=== PATIENT | female | born 1985 | race African-American/Black ===

== ENCOUNTER 2021-01-12 21:32 | Inpatient (IN) | payer OTHER ==
[2021-01-12] MEDS ORDERED: Diphenoxylate HCl/Atropine Tablet PO PRN (21:46)
[2021-01-12] MEDS ORDERED: Lidocaine 1% (PF) 30 ML VIAL SC PRN (21:46)
[2021-01-12] MEDS ORDERED: Ibuprofen 800 MG TAB PO PRN (21:46)
[2021-01-12] MEDS ORDERED: hydrALAZINE 20 MG/ML VIAL SLOW IVP PRN (21:46)
[2021-01-12] MEDS ORDERED: Ondansetron PF 4 MG/2 ML Vial IVP PRN ×2 (21:46→23:40)
[2021-01-12] MEDS ORDERED: Carboprost 250 MCG/ML AMP IM PRN (21:46)
[2021-01-12] MEDS ORDERED: Misoprostol 200 MCG TAB PR PRN (21:46)
[2021-01-12] MEDS ORDERED: Promethazine HCl 25 MG/ML VIAL IM PRN ×2 (21:46→23:40)
[2021-01-12] MEDS ORDERED: Lactated Ringer's 1,000 ML IV SCH (22:00)
[2021-01-12] MEDS ORDERED: NS w/ Oxytocin 30 units 500 ML IV SCH (22:00)
[2021-01-12] MEDS ORDERED: Fentanyl 2 mcg/Bup 0.1% Cadd 100 ML ONE (22:01)
[2021-01-12 22:08] VITALS: BMI 32.9
[2021-01-12 22:53] LABS: Mean Corpuscular HGB CONC 32.1 g/dL (32.0-36.0); Mean Corpuscular Hemoglobin 28.2 pg (27.0-33.0); Mean Corpuscular Volume 88.1 fl (81.6-98.3); Mean Platelet Volume 11.3 fl (7.4-10.4); Platelet Count 187 10x3/uL (150-450); RBC Distribution Width 16.9 % (11.5-14.5); Red Blood Cell (RBC) Count 3.54 10x6/uL (3.90-5.03); White Blood Cell (WBC) Count 10.2 10x3/uL (3.5-10.5)
[2021-01-12 23:28] LABS: Hep B Surf Ag Non-Reactive S/CO (NonReactive)
[2021-01-12 23:35] LABS: HBSAg Index 0.18 S/CO (0-0.99)
[2021-01-12] MEDS ORDERED: ePHEDrine Sulfate 50 MG/10 ML VIAL SLOW IVP PRN (23:40)
[2021-01-12] MEDS ORDERED: Hydrocerin (Eucerin) Cream 120 gm Jar TOP PRN (23:40)
[2021-01-12] MEDS ORDERED: diphenhydrAMINE 50 MG/ML VIAL IVP PRN (23:40)
[2021-01-12] MEDS ORDERED: Lactated Ringer's 500 ML IV PRN (23:40)
[2021-01-12] MEDS ORDERED: Naloxone HCl 0.4 mg/ml Vial IVP PRN ×2 (23:40)
[2021-01-12] MEDS ORDERED: Fentanyl 2 mcg/Bupivacaine 0.1% Cassette 100 ML EPIDURAL SCH (23:45)
[2021-01-12] MEDS ORDERED: Communication Order-Pharmacy FS SCH (23:45)
[2021-01-12 23:57] LABS: Syphilis Antibody Nonreactive (Nonreactive); Syphilis Antibody Index 0.04 S/CO (<1.00 Non-Reactive)
[2021-01-12 23:59] LABS: SARS-CoV-2 NAA Rapid Test Not Detected (NotDetected)
[2021-01-13] MEDS ORDERED: Preparation H Ointment 28 GM TUBE PR PRN (03:44)
[2021-01-13] MEDS ORDERED: hydrALAZINE 20 MG/ML VIAL SLOW IVP PRN (03:44)
[2021-01-13] MEDS ORDERED: Milk Of Magnesia 30 ML UDCUP PO PRN (03:44)
[2021-01-13] MEDS ORDERED: diphenhydrAMINE 25 MG CAP PO PRN (03:44)
[2021-01-13] MEDS ORDERED: Ondansetron PF 4 MG/2 ML Vial IVP PRN (03:44)
[2021-01-13] MEDS ORDERED: Boostrix 0.5 ML (Tdap) VIAL IM ONE (03:44)
[2021-01-13] MEDS ORDERED: Benzocaine-Menthol 82.5 ML CAN TOP PRN (03:44)
[2021-01-13] MEDS ORDERED: Bisacodyl 10 MG SUPP PR PRN (03:44)
[2021-01-13] MEDS ORDERED: Lanolin Ointment 7 GM TUBE TOP PRN (03:44)
[2021-01-13] MEDS: Acetaminophen 325 MG TAB PO PRN ×2 (07:22→21:47)
[2021-01-13] MEDS: Ibuprofen 800 MG TAB PO SCH ×3 (08:30→21:26)
[2021-01-13] MEDS: Ferrous Sulfate 325 MG TAB PO SCH ×2 (08:30→18:09)
[2021-01-13] MEDS: Docusate Calcium (SURFAK) 240 MG CAP PO SCH ×3 (08:50→21:26)
[2021-01-13] MEDS: Prenatal Vitamin 1 TAB PO SCH (08:50)
[2021-01-14] MEDS: Ibuprofen 800 MG TAB PO SCH (06:00)
[2021-01-14 07:47] VITALS: BP 119/68; TEMP 98.1
[2021-01-14] MEDS: Ferrous Sulfate 325 MG TAB PO SCH (08:51)
[2021-01-14] MEDS: Prenatal Vitamin 1 TAB PO SCH (08:54)
[2021-01-14] MEDS: Docusate Calcium (SURFAK) 240 MG CAP PO SCH (08:54)
== END 2021-01-14 14:00 | disposition home or self-care (01) | DRG 806 ==
LOC: CSHLD 21:32 → CSHPP 01-13 06:45
PROVIDERS: ADMIT Family Medicine; ATTEND Family Medicine
PROC: 10E0XZZ Delivery of Products of Conception, External Approach (ICD-10-PCS; principal; 2021-01-13)
DX: O99.344 Other mental disorders complicating childbirth (principal); O10.92 Unspecified pre-existing hypertension complicating childbirth; Z37.0 Single live birth; Z20.822 Contact with and (suspected) exposure to COVID-19; Z3A.38 38 weeks gestation of pregnancy; E66.9 Obesity, unspecified; F32.A Depression, unspecified; F41.1 Generalized anxiety disorder; D50.9 Iron deficiency anemia, unspecified; O99.02 Anemia complicating childbirth; O99.334 Smoking (tobacco) complicating childbirth; F17.210 Nicotine dependence, cigarettes, uncomplicated; Z88.0 Allergy status to penicillin; Z91.19 Patient's noncompliance with other medical treatment and regimen
CPT/HCPCS: 85027; 86780; 86850; 86900; 86901; 87340; J1200; J2590; J7120; U0002